=== PATIENT | male | born 1985 | race African-American/Black ===

== ENCOUNTER 2018-02-22 00:27 | Observation (INO) | payer OTHER ==
--- NOTE | 2018-02-22 01:44 | PDOC ---
History of Present Illness - General History Source: Patient, Old Records Exam Limitations: No Limitations - History of Present Illness Initial Comments: 02/22/18 04:43 Patient is a 32 year old male with a significant past medical history of HIV, H.pylori, Gastritis, who presents to the ED with complaints of difficulty breathing that began that began yesterday. Patient reports experiencing gradual difficulty breathing that began yesterday evening as well as experiencing associated episodes of vomiting. He reports experiencing associated symptoms of multiple vomiting episodes, cough, runny nose, and diarrhea, prompting him to come into the ED for further evaluation. Denies chest pain, Sob. Denies nausea, vomiting. Denies fevers, chills. Denies contact with sick individuals, out of state travelling. Denies any other symptoms. Allergies: shellfish Social history: Current smoker. No alcohol. Current Marijuana use. Surgical history: None PMD: None <Marcel Pierre - Last Filed: 02/22/18 04:43> <Radha Camarillo - Last Filed: 02/22/18 06:38> - General Chief Complaint: Shortness of Breath Stated Complaint: DIFFICULTY BREATHING Time Seen by Provider: 02/22/18 01:13 Past History <Marcel Pierre - Last Filed: 02/22/18 04:43> - Past Medical History Asthma: Yes (has never used albuterol pump) Diabetes: No - Suicide/Smoking/Psychosocial Hx Smoking History: Never smoked Have you smoked in the past 12 months: No Number of Cigarettes Smoked Daily: 20 Information on smoking cessation initiated: No 'Breaking Loose' booklet given: 05/30/16 Hx Alcohol Use: No Drug/Substance Use Hx: No Substance Use Type: Marijuana Hx Substance Use Treatment: No <Radha Camarillo - Last Filed: 02/22/18 06:38> - Past Medical History Allergies/Adverse Reactions: Allergies Allergy/AdvReac Type Severity Reaction Status Date / Time shellfish derived Allergy Mild Vomiting Verified 02/22/18 00:44 No Known Drug Allergies Allergy Verified 02/22/18 00:44 Home Medications: Ambulatory Orders Emtricitab/Rilpiviri/Tenof Ala [Odefsey Tablet] 1 tab PO DAILY #30 tablet Multivitamins [Multivit ([facility] Formulary)] 1 tab PO DAILY #30 tab 02/03/18 Review of Systems - Review of Systems Able to Perform ROS?: Yes Comments:: 02/22/18 04:43 GENERAL/CONSTITUTIONAL: No fever or chills. No weakness. HEAD, EYES, EARS, NOSE AND THROAT: No change in vision. No ear pain or discharge. No sore throat. CARDIOVASCULAR: No chest pain or shortness of breath. RESPIRATORY: No cough, wheezing, or hemoptysis. GASTROINTESTINAL: +Nausea. +vomiting. +diarrhea. No constipation. GENITOURINARY: No dysuria, frequency, or change in urination. MUSCULOSKELETAL: No joint or muscle swelling or pain. No neck or back pain. SKIN: No rash NEUROLOGIC: No headache, vertigo, loss of consciousness, or change in strength/ sensation. ENDOCRINE: No increased thirst. No abnormal weight change. HEMATOLOGIC/LYMPHATIC: No anemia, easy bleeding, or history of blood clots. ALLERGIC/IMMUNOLOGIC: No hives or skin allergy. <Marcel Pierre - Last Filed: 02/22/18 04:43> *Physical Exam - Vital Signs Last Vital Signs Temp Pulse Resp BP Pulse Ox 97.8 F 76 22 147/83 97 02/22/18 00:39 02/22/18 00:39 02/22/18 00:39 02/22/18 00:39 02/22/18 00:39 - Physical Exam Comments: 02/22/18 04:43 GENERAL: +cachectic. +Weak. +Fatigued Awake, alert, and fully oriented, in no acute distress HEAD: No signs of trauma EYES: +Sunken eyes. PERRLA, EOMI, sclera anicteric, conjunctiva clear ENT: Auricles normal inspection, hearing grossly normal, nares patent, oropharynx clear without exudates. Moist mucosa NECK: Normal ROM, supple, no lymphadenopathy, JVD, or masses LUNGS: Breath sounds equal, clear to auscultation bilaterally. No wheezes, and no crackles HEART: Regular rate and rhythm, normal S1 and S2, no murmurs, rubs or gallops ABDOMEN: Soft, nontender, normoactive bowel sounds. No guarding, no rebound. No masses EXTREMITIES: Normal range of motion, no edema. No clubbing or cyanosis. No cords, erythema, or tenderness NEUROLOGICAL: Cranial nerves II through XII grossly intact. Normal speech, normal gait SKIN: Warm, Dry, normal turgor, no rashes or lesions noted. <Marcel Pierre - Last Filed: 02/22/18 04:43> - Vital Signs Last Vital Signs Temp Pulse Resp BP Pulse Ox 97.8 F 76 22 147/83 97 02/22/18 00:39 02/22/18 00:39 02/22/18 00:39 02/22/18 00:39 02/22/18 00:39 <Radha Camarillo - Last Filed: 02/22/18 06:38> ED Treatment Course - LABORATORY CBC & Chemistry Diagram: 02/22/18 02:00 02/22/18 02:00 - ADDITIONAL ORDERS Additional order review: Laboratory Results 02/22/18 02:00 Sodium 143 Potassium 4.3 Chloride 106 Carbon Dioxide 25 Anion Gap 12 BUN 19 H Creatinine 1.4 H D Creat Clearance w eGFR 58.73 Random Glucose 122 H D Calcium 10.2 H Total Bilirubin 0.9 D AST 21 D ALT 22 D Alkaline Phosphatase 78 Total Protein 8.2 D Albumin 4.9 D 02/22/18 02:00 RBC 4.96 MCV 93.6 MCHC 34.9 RDW 12.9 MPV 7.6 D Neutrophils % 88.2 H D Lymphocytes % 7.6 L D Monocytes % 4.0 Eosinophils % 0.0 D Basophils % 0.2 - Medications Given in the ED: ED Medications Discontinued Medications Generic Name Dose Route Start Last Admin Trade Name Freq PRN Reason Stop Dose Admin Morphine Sulfate 2 mg 02/22/18 03:02 02/22/18 03:45 Morphine Injection - IVPUSH 02/22/18 03:03 2 mg ONCE ONE Administration Sodium Chloride 1,000 ml 02/22/18 02:46 02/22/18 03:45 Normal Saline - IV 02/22/18 02:47 1,000 ml ONCE ONE Administration <Marcel Pierre - Last Filed: 02/22/18 04:43> - LABORATORY CBC & Chemistry Diagram: 02/22/18 02:00 02/22/18 02:00 <Radha Camarillo - Last Filed: 02/22/18 06:38> Medical Decision Making - Medical Decision Making 02/22/18 06:17 Pt has elevated WBC count and questionable pneumonia. SOB. Mom tells me that pt has been unable to eat and that he is losing weight. Pt will be admitted to medicine observation. <Radha Camarillo - Last Filed: 02/22/18 06:38> *DC/Admit/Observation/Transfer - Attestations Scribe Attestion: 02/22/18 04:43 Documentation prepared by Marcel Pierre, acting as medical cost consultant for Radha Camarillo MD/DO. <Marcel Pierre - Last Filed: 02/22/18 04:43> - Discharge Dispostion Admit: Yes <Radha Camarillo - Last Filed: 02/22/18 06:38> Diagnosis at time of Disposition: Weight loss, abnormal, Dehydration, Acute renal insufficiency, Depression, Decreased oral intake, Dyspnea - Discharge Dispostion Condition at time of disposition: Guarded - Referrals Referrals: ON STAFF,NOT [Non Staff, Medical] - - Patient Instructions - Post Discharge Activity
[2018-02-22 02:14] LABS: BASO % 0.2 % (0-2.0); HEMATOCRIT 46.5 % (35.4-49); HEMOGLOBIN 16.2 GM/dL (11.7-16.9); LYMPH % 7.6 % (8-40); MCH 32.7 pg (25.7-33.7); MCHC 34.9 g/dl (32.0-35.9); MEAN CELL VOLUME 93.6 fl (80-96); MEAN PLT VOLUME 7.6 fl (7.5-11.1); NEUT % 88.2 % (42.8-82.8); PLATELET COUNT 213 K/MM3 (134-434); RBC 4.96 M/mm3 (4.00-5.60); RDW 12.9 % (11.9-15.9)
[2018-02-22 02:39] LABS: ALBUMIN 4.9 g/dl (3.4-5.0); ALK PHOS 78 U/L (45-117); ANION GAP 12 (8-16); BILIRUBIN,TOTAL 0.9 mg/dL (0.2-1.0); BLOOD UREA NITROGEN 19 mg/dL (7-18); CALCIUM 10.2 mg/dL (8.5-10.1); CHLORIDE 106 mmol/L (98-107); CO2 25 mmol/L (21-32); CREATININE 1.4 mg/dL (0.7-1.3); GLUCOSE,RANDOM 122 mg/dL (74-106); POTASSIUM 4.3 mmol/L (3.5-5.1); SGOT/AST 21 U/L (15-37); SGPT/ALT 22 U/L (12-78); SODIUM 143 mmol/L (136-145); TOT PROT 8.2 g/dl (6.4-8.2)
[2018-02-22] MEDS ORDERED: SODIUM CHLORIDE 0.9% 500 ML INFUS.BAG IV ONE (02:46)
[2018-02-22] MEDS ORDERED: morphine CARPU-JECT 2 MG/1 ML DISP.SYRIN IVPUSH ONE (03:02)
[2018-02-22] MEDS ORDERED: morphine SULFATE 4 MG/ML VIAL ONE (03:29)
[2018-02-22] MEDS ORDERED: morphine SULFATE 4 MG/ML VIAL IVPUSH STA (06:27)
[2018-02-22] MEDS ORDERED: PANTOPRAZOLE SODIUM 40 MG/100 ML BAG IVPB ONE (06:33)
--- NOTE | 2018-02-22 06:38 | HP ---
CHIEF COMPLAINT: abdominal pain, nausea PCP: Dr. townsend, [facility] HISTORY OF PRESENT ILLNESS: 32 yr old man with HIV controlled on meds, presented to ed with intractable abdominal pain since this morning associated with 2 episodes of yellow nonbloody vomiting and nausea. Pain is mostly in the epigastrium, but also diffuse, continuous, nonradiating. he has had this pain for past few months but recently it acutely worsened. He has lost 25pounds over the last 1 months. 2 months he was seen by Dr. Trevino for endoscopy regarding epigastric pain. He was treated for H.pylori with triple therapy which he completed. He recalls that the endoscopy results were normal. denies fevers, chest pain, trouble breathing, swelling, cough, trouble breathing , diarrhea, constipation, new foods. ER course was notable for: (1) 1 L of fluids Recent Travel: none PAST MEDICAL HISTORY: HIV, does not want to discuss his status, says he is compliant with his meds and "everything regarding that is good" PAST SURGICAL HISTORY: denies Allergies shellfish derived Allergy (Mild, Verified 02/22/18 00:44) Vomiting No Known Drug Allergies Allergy (Verified 02/22/18 00:44) HOME MEDICATIONS: Home Medications Medication Instructions Recorded Emtricitab/Rilpiviri/Tenof Ala 1 tab PO DAILY #30 tablet 02/03/18 [Odefsey Tablet] Multivitamins [Multivit ([facility] 1 tab PO DAILY #30 tab 02/03/18 Formulary)] REVIEW OF SYSTEMS CONSTITUTIONAL: Absent: fever, chills, diaphoresis, generalized weakness, malaise, loss of appetite, weight change HEENT: Absent: rhinorrhea, nasal congestion, throat pain, throat swelling, difficulty swallowing, mouth swelling CARDIOVASCULAR: Absent: chest pain, syncope, palpitations, irregular heart rate, lightheadedness , peripheral edema RESPIRATORY: Absent: cough, shortness of breath, dyspnea with exertion, orthopnea, wheezing, stridor, hemoptysis GASTROINTESTINAL: Present:abdominal pain, nausea, vomiting, Absent: abdominal distension, diarrhea, constipation, melena, hematochezia GENITOURINARY: Absent: dysuria, frequency, urgency, hesitancy, hematuria, flank pain, genital pain MUSCULOSKELETAL: Absent: myalgia, arthralgia, joint swelling, back pain, neck pain SKIN: Absent: rash, itching, pallor HEMATOLOGIC/IMMUNOLOGIC: Absent: easy bleeding, easy bruising, lymphadenopathy, frequent infections ENDOCRINE: Present: unexplained weight loss, Absent: unexplained weight gain, heat intolerance, cold intolerance PHYSICAL EXAMINATION Vital Signs - 24 hr 02/22/18 00:39 Temperature 97.8 F Pulse Rate 76 Respiratory 22 Rate Blood Pressure 147/83 O2 Sat by Pulse 97 Oximetry (%) GENERAL: Awake, alert, and fully oriented, in no acute distress. thin EYES: Pupils equal, round and reactive to light, extraocular movements intact, sclera anicteric, conjunctiva clear. No lid lag. EARS, NOSE, THROAT: oropharynx clear without exudates. no thrush, Moist mucous membranes. NECK: Normal range of motion, supple without JVD LUNGS: Breath sounds equal, clear to auscultation bilaterally. No wheezes, and no crackles. No accessory muscle use. HEART: Regular rate and rhythm, normal S1 and S2 without murmur, rub or gallop. ABDOMEN: Soft, +tender, not distended, normoactive bowel sounds, MUSCULOSKELETAL: No CVA tenderness. UPPER EXTREMITIES: 2+ radial pulses, warm, well-perfused. No cyanosis. No clubbing. No peripheral edema. NEUROLOGICAL: Normal speech. facial symmetry Laboratory Results - last 24 hr 02/22/18 02/22/18 02:00 02:00 WBC 11.0 H D RBC 4.96 Hgb 16.2 D Hct 46.5 MCV 93.6 MCH 32.7 MCHC 34.9 RDW 12.9 Plt Count 213 D MPV 7.6 D Neutrophils % 88.2 H D Lymphocytes % 7.6 L D Monocytes % 4.0 Eosinophils % 0.0 D Basophils % 0.2 Sodium 143 Potassium 4.3 Chloride 106 Carbon Dioxide 25 Anion Gap 12 BUN 19 H Creatinine 1.4 H D Creat Clearance w eGFR 58.73 Random Glucose 122 H D Calcium 10.2 H Total Bilirubin 0.9 D AST 21 D ALT 22 D Alkaline Phosphatase 78 Total Protein 8.2 D Albumin 4.9 D ASSESSMENT/PLAN: 32 yr old man with HIV presents with abdominal pain placed on observation. Abdominal pain - unclear etiology - abdominal pelvis CT without contrast due to ANTOINE - associated with weightloss, differential dx includes infectious cause, lack of po intake possibly due to gastric ulcer, gastritis, undiagnosed malignancy, or advancement of HIV into AIDS - if no cause on CT, may benefit from gi consult for re-scoping - pain control with morphine - check lipase level - urine toxicology to r/o THC use causing cyclical vomiting as per chart review , pt has a hx of abdominal pain a/w with n&v in the past and smokes marijuana on a regular basis ANTOINE - likely prerenal due to poor po intake - IVF NS @125cc/hr HIV - pt consented to repeat testing, CD4 counts, chamlydia+gono testing - ID consulted for input if this is advancement of disease vs infectious etiology - obtain viral load from PCP if possible #Leucocytosis - infectious vs reactive to viral gastritris, repeat in the AM to trend #DVT - low risk #diet - npo due to vomiting, advance as tolerated Visit type - Emergency Visit Emergency Visit: Yes ED Registration Date: 02/22/18 Care time: The patient presented to the Emergency Department on the above date and was hospitalized for further evaluation of their emergent condition. - New Patient This patient is new to me today: Yes Date on this admission: 02/22/18 - Critical Care Critical Care patient: No Hospitalist Screening - Colonoscopy Questionnaire Colonoscopy Questionnaire: Colonoscopy Questionnaire - Patient: 50 - 75 years old and never had a screening colonoscopy: Unknown History of colon or rectal polyps, or CA: Unknown History of IBD, Crohn's disease or UC: Unknown History of abdominal radiation therapy as a child: Unknown - Relative: 1 with colon or rectal CA, or polyps at age 60 or younger: Unknown Colon or rectal CA diagnosed at age 45 or younger: Unknown Multiple relatives with colon or rectal CA: Unknown - Outcome: Screening Result: Negative Screen
[2018-02-22] MEDS: SODIUM CHLORIDE 1,000 ML IV SCH ×2 (06:51→15:36)
[2018-02-22] MEDS: ONDANSETRON 4 MG/2 ML VIAL IVPB ONE ×2 (06:51→15:37)
--- NOTE | 2018-02-22 07:32 | PN ---
Teaching Attending Note Name of Resident: Carey May ATTENDING PHYSICIAN STATEMENT I saw and evaluated the patient. chart, data, imaging reviewed. I reviewed the resident's note and discussed the case with the resident. I agree with the resident's findings and plan as documented. SUBJECTIVE: 32yo HIV+ man with gastritis c/o epigastric pain for one day. He says that pain started insiduously, associated with some nausea and vomiting. + failure to thrive. Denied any fever or chills. Found to have rigors in ER that he attributed to abdominal pain. Reports cd4 count reportedly wnl 2 weeks ago. Patient uses marijuana on a regular basis. OBJECTIVE: Last Vital Signs Temp Pulse Resp BP Pulse Ox 98.6 F 84 14 128/77 99 02/22/18 06:55 02/22/18 06:55 02/22/18 06:55 02/22/18 06:55 02/22/18 06:55 general- some visible distress from abdominal pain, cachectic heent- atraumatic, normocephalic, no oral thrush neck - supple cv- s1+s2+rrr chest- cta b/l abdomen- Guarding+, bs + skin- no rashes appreciated Abnormal Lab Results 02/22/18 02/22/18 02:00 02:00 WBC 11.0 H D Neutrophils % 88.2 H D Lymphocytes % 7.6 L D BUN 19 H Creatinine 1.4 H D Random Glucose 122 H D Calcium 10.2 H CXR- reviewed by me, no infiltrates or consolidations seen, pending official read ASSESSMENT AND PLAN: 32yo man HIV+ with cachexia, failure to thrive, and abdominal pain for one day.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 History of gastritis. #Epigastric pain- pain be related to gastritis vs secondary to vomiting from marijuana. R/o pancreatitis. -PPI -avoid NSAIDs -counseling to stop marijuana -lipase level -tylenol for pain control -urine drug screen -etoh level -ct of abdomen/pelvis -zofran for nausea/vomiting #HIV -hiv serology -cd4 count, viral load -c/w odefsey 1 tab daily #ANTOINE -iv fluid hydration #DVT ppx -heparin sc
[2018-02-22 07:46] LABS: URINE APPEARANCE SLCLOUDY; URINE BILIRUBIN NEGATIVE (<2.0 mg/dL); URINE COLOR DKYELLOW; URINE GLUCOSE (UA) NEGATIVE (NEGATIVE); URINE KETONE 2+ (NEGATIVE); URINE LEUK ESTERASE NEGATIVE (NEGATIVE); URINE NITRITE NEGATIVE (NEGATIVE)
[2018-02-22 07:49] LABS: URINE PROTEIN 2+ (NEGATIVE)
[2018-02-22 09:20] LABS: URINE MUCUS FEW
[2018-02-22] MEDS: PANTOPRAZOLE SODIUM 40 MG VIAL IVPUSH SCH (09:24)
[2018-02-22] MEDS: MULTIVITAMINS (DAILY MVI) TABLET (FP) PO SCH ×2 (09:24→09:31)
--- NOTE | 2018-02-22 09:52 | PN ---
Progress Note (short form) - Note Progress Note: Subjective: denies N/V now , has no fever or chills, denies any abd pain at this time. reports vomiting multiple time ( green em,esis ) watery diarrhea with no blood . Objective: Last Vital Signs Temp Pulse Resp BP Pulse Ox 98.6 F 84 14 128/77 97 02/22/18 06:55 02/22/18 06:55 02/22/18 06:55 02/22/18 06:55 02/22/18 07:44 labs reviewed EKG reviewed. Qtc 479. Physical Exam: NAD , AAOx3 MMM, EOMI. round equal pupils CV: RRR Lungs: CTAB ext: no edema or erythema . DP 2+ b/l Abd:soft , NT, ND , NLB S . Assessment/Plan: 32 y/o man with daily Marijuana use , HP infection , and HIV who presented with abd pain , N/V and diarrhea . 1- Abd pain , N/V . could be due to cyclic vomiting syndrome. given his diarrhea , viral gastroenteritis is possible. last EGD /colo from 2015 reviewed. gastritis and removal of sigmoid polyps. HP + . treated for [address] scan with no acute pathology. - supportive measures . - lipase pending . doubt acute pancreatitis - IVF - clears - compazine for nausea. avoid zofran/reglan due to QTC of 479. - PPI - Had HP , treated with 3 courses of Abx . was told detection was positive 3 weeks ago. - check HP stool Ag - check electrolytes . follow mild leukocytosis 2- h/o HIV: denied diagnosis to me , but admitted to Night team. - cont Odefsy. will confirm with his pharmacy ( closed ) - STD screen pending 3- ANTOINE : IVF . likely prerenal azotemia - repeat labs now 4- Weight loss. last colo with ileal hyperplagia of lymphatic tissue. - check transglutaminase 5- dispo : HLOC Visit type - Emergency Visit Emergency Visit: Yes ED Registration Date: 02/22/18 Care time: The patient presented to the Emergency Department on the above date and was hospitalized for further evaluation of their emergent condition. - New Patient This patient is new to me today: Yes Date on this admission: 02/22/18 - Critical Care Critical Care patient: No
[2018-02-22] MEDS ORDERED: EMTRICITAB/RILPIVIRI/TENOF ALA (ODEFSEY) TABLET PO SCH (10:00)
[2018-02-22 10:23] LABS: ANION GAP 7 (8-16); BLOOD UREA NITROGEN 18 mg/dL (7-18); CALCIUM 8.6 mg/dL (8.5-10.1); CHLORIDE 112 mmol/L (98-107); CO2 24 mmol/L (21-32); CREATININE 1.1 mg/dL (0.7-1.3); GLUCOSE,RANDOM 102 mg/dL (74-106); LIPASE 167 U/L (73-393); PHOSPHOROUS 3.5 mg/dL (2.5-4.9); POTASSIUM 3.7 mmol/L (3.5-5.1); SODIUM 143 mmol/L (136-145)
--- NOTE | 2018-02-22 13:09 | PN ---
Progress Note (short form) - Note Progress Note: ID Consult dictated Consult at request of Dr. May N/V/D 25lb wt loss HIV + VL < 20 CD4 747 ( 02/03/18) Opportunistic infection unlikely as cause of wasting syndrome (CD4 500-1000 for past 3yr) Lymphoma or occult malignancy a possibility Continue ART ? GI evaluation
--- NOTE | 2018-02-22 14:30 | EKG ---
Test Reason : Blood Pressure : / mmHG Vent. Rate : 083 BPM Atrial Rate : 083 BPM P-R Int : 168 ms QRS Dur : 092 ms QT Int : 408 ms P-R-T Axes : 081 082 069 degrees QTc Int : 479 ms NORMAL SINUS RHYTHM WITH SINUS ARRHYTHMIA NORMAL ECG WHEN COMPARED WITH ECG OF 30-MAY-2016 12:01, NO SIGNIFICANT CHANGE WAS FOUND Confirmed by MD Tyler, Reyes ([id number]) on 02/22/2018 2:30:02 PM Referred By: Confirmed By:Reyes Scott MD
--- NOTE | 2018-02-22 14:41 | CONS ---
DATE OF CONSULTATION: 02/22/2018 The patient is a 32-year-old male, HIV positive, evaluated for management of his antiretroviral therapy and wasting syndrome. The patient is followed in the [facility]. He has been HIV positive for a number of years. He has been maintained on antiretroviral therapy. He has been adherent and has had a viral load which has been undetectable for approximately 3 years and a T-cell count consistently between 500 and 1000 for the last 3 years. He now presents with increasing cough, rhinorrhea, shortness of breath, nausea, vomiting, diarrhea, anorexia, and 25-pound weight loss. He had had a similar episode in the past. He had undergone EGD and colonoscopy, which he reports were negative. He was treated for Helicobacter pylori in the past. He denies any abdominal pain at the present time. He still has anorexia and nausea and is unable to hold down liquids. He denies diarrhea. No fever or chills. PAST MEDICAL HISTORY: As above. No known drug allergies. Medications include Odefsey, Protonix. SOCIAL HISTORY: He lives in the community. No history of tobacco use or alcohol use. Positive history of marijuana use. SYSTEMS REVIEW: Neurologic: No loss of consciousness, seizure activity, or focal weakness. Cardiac: Negative chest pain or palpitations. Respiratory: Negative cough or sputum production. Gastrointestinal: As per HPI. Genitourinary: Negative for urinary tract infection. LABORATORY DATA: White count 11.0, neutrophils 88, lymphocytes 7, monocytes 4, hematocrit 46.5, platelet count 213, BUN 18, creatinine 1.1, lipase 167. Chest x-ray negative. CAT scan of the abdomen and pelvis negative. Most recent viral markers from February 03, 2018, show a viral load of less than 20 and a T-cell count of 747. PHYSICAL EXAMINATION: General: He is awake and alert, thin male, in no acute distress. Vital Signs: Temperature 98. Blood pressure 117/81. Pulse 71, regular. Respirations 17 per minute. Eyes: Sclerae anicteric. ENT: Sclerae anicteric. Oropharynx negative. Neck: Supple. No palpable nodes. Heart Sounds: S1, S2. No murmur. Lungs: Clear. Abdomen: Soft. There is mild diffuse tenderness to palpation. No rebound or rigidity. Extremities: Negative for edema. No rashes noted. IMPRESSION: Nausea, vomiting, diarrhea, 25-pound weight loss, human immunodeficiency virus positive patient, well controlled on antiretroviral therapy. Opportunistic infection as cause of his wasting syndrome unlikely, as his T cells have been consistently between 500 and 1000 for the past 3 years. Cannot rule out a lymphoma or occult malignancy. Continue antiretroviral therapy. Would consider GI evaluation for his gastrointestinal symptoms and significant weight loss. KORI REESE M.D. [id number]
[2018-02-22 16:25] VITALS: BMI 18.0
[2018-02-22] MEDS ORDERED: ACETAMINOPHEN 325 MG TABLET (FP) PO ONE (19:52)
[2018-02-22] MEDS: PROCHLORPERAZINE INJECTION 10 MG/2 ML VIAL IVPB PRN (21:55)
[2018-02-22] MEDS ORDERED: PT OWN MED DRAWER 7, Y5N ONE (22:18)
[2018-02-23] MEDS ORDERED: ACETAMINOPHEN 1000 MG/100 ML VIAL (NON FORMULARY) IVPB ONE (03:53)
[2018-02-23] MEDS: SODIUM CHLORIDE 1,000 ML IV SCH ×3 (04:41→21:38)
[2018-02-23] MEDS: PROCHLORPERAZINE INJECTION 10 MG/2 ML VIAL IVPB PRN ×3 (06:54→23:25)
[2018-02-23] MEDS ORDERED: INSULIN (LEVEMIR) 100 UNITS/ML UNITS SQ ONE (07:17)
[2018-02-23] MEDS ORDERED: INSULIN (NOVOLOG) ASPART 100 UNITS/ML 10ML VIAL ONE (07:17)
[2018-02-23 08:01] LABS: HEMATOCRIT 38.5 % (35.4-49); HEMOGLOBIN 13.7 GM/dL (11.7-16.9); MCH 33.6 pg (25.7-33.7); MCHC 35.5 g/dl (32.0-35.9); MEAN CELL VOLUME 94.5 fl (80-96); MEAN PLT VOLUME 8.6 fl (7.5-11.1); PLATELET COUNT 179 K/MM3 (134-434); RBC 4.07 M/mm3 (4.00-5.60); RDW 13.1 % (11.9-15.9); WHITE BLOOD COUNT 6.2 K/mm3 (4.0-10.0)
[2018-02-23 08:36] LABS: CHLORIDE 113 mmol/L (98-107); POTASSIUM 3.5 mmol/L (3.5-5.1); SODIUM 144 mmol/L (136-145)
[2018-02-23 08:49] LABS: ANION GAP 8 (8-16); BLOOD UREA NITROGEN 16 mg/dL (7-18); CALCIUM 8.2 mg/dL (8.5-10.1); CO2 23 mmol/L (21-32); GLUCOSE,RANDOM 86 mg/dL (74-106); MAGNESIUM 1.9 mg/dL (1.8-2.4); PHOSPHOROUS 2.4 mg/dL (2.5-4.9)
[2018-02-23] MEDS ORDERED: NAPH,MB-DB/K PH,MBDB POWDER PACKET PO ONE (08:59)
[2018-02-23] MEDS: MULTIVITAMINS (DAILY MVI) TABLET (FP) PO SCH (10:58)
[2018-02-23] MEDS: PANTOPRAZOLE SODIUM 40 MG VIAL IVPUSH SCH (10:58)
--- NOTE | 2018-02-23 12:25 | CON.GI ---
Consult Consult Specialty:: GI Reason for Consultation:: nausea, vomiting, weight loss - History of Present Illness History of Present Illness: Chart reviewed. Events noted. As per initial intake: 32 yr old man with HIV controlled on meds, presented to ed with intractable epigastric, nonradiating, 10 out of 10, no aggravating, or alleviating factors abdominal pain since this morning associated with 2 episodes of yellow nonbloody vomiting and nausea. Pain is mostly in the epigastrium, but also diffuse, continuous. He has had this pain for past few months but recently it acutely worsened. He has lost 25pounds over the last 1 months. Was admitted 2 years ago for similar complaints and underwent EGD and colonoscopy with biopsies. H. pylori positive gastritis was found and treated. Terminal ileal biopsies revealed lymphoid aggregates. Currently, no recent history of melena, hematochezia, hematemesis, change in stool caliber, dysphagia, odynophagia, significant GERD. Patient reports he is unable to keep anything down. Reports smoking marijuana daily. Hot showers help with abdominal symptoms. a very limited CT on admission revealed no significant pathology - History Source History Provided By: Transfer Record - Past Medical History Infectious Disease: Yes: Other (HIV positive followed at the [facility]) - Alcohol/Substance Use Hx Alcohol Use: No History of Substance Use: reports: None - Smoking History Smoking history: Current every day smoker Have you smoked in the past 12 months: Yes Aproximately how many cigarettes per day: 20 - Social History Usual Living Arrangement: With Significant Other ADL: Independent Occupation: not employed History of Recent Travel: No Home Medications - Allergies Allergies/Adverse Reactions: Allergies Allergy/AdvReac Type Severity Reaction Status Date / Time shellfish derived Allergy Mild Vomiting Verified 02/22/18 00:44 No Known Drug Allergies Allergy Verified 02/22/18 00:44 - Home Medications Home Medications: Ambulatory Orders Emtricitab/Rilpiviri/Tenof Ala [Odefsey Tablet] 1 tab PO DAILY #30 tablet Multivitamins [Multivit ([facility] Formul[facility])] 1 tab PO DAILY #30 tab 02/03/18 Family Disease History - Family Disease History Family Disease History: Heart Disease: Mother (HTN, gout), Other: Father ( unknown) Review of Systems Findings/Remarks: As per H&P Physical Exam-GI Vital Signs: Vital Signs Temperature 99.2 F 02/23/18 06:00 Pulse Rate 61 02/23/18 06:00 Respiratory Rate 18 02/23/18 06:00 Blood Pressure 132/80 02/23/18 06:00 O2 Sat by Pulse Oximetry (%) 99 02/22/18 21:00 Constitutional: Yes: Anxious Eyes: Yes: Conjunctiva Clear HENT: Yes: Atraumatic Neck: Yes: Supple Cardiovascular: Yes: Regular Rate and Rhythm Respiratory: Yes: Regular Gastrointestinal Inspection: No: Distention ...Auscultate: Yes: Normoactive Bowel Sounds ...Palpate: Yes: Soft, Tenderness. No: Tenderness, Rebound Neurological: Yes: Alert, Oriented Labs: CBC, BMP 02/23/18 06:30 02/23/18 06:30 Laboratory Last Values WBC 6.2 K/mm3 (4.0-10.0) D 02/23/18 06:30 RBC 4.07 M/mm3 (4.00-5.60) 02/23/18 06:30 Hgb 13.7 GM/dL (11.7-16.9) D 02/23/18 06:30 Hct 38.5 % (35.4-49) D 02/23/18 06:30 MCV 94.5 fl (80-96) 02/23/18 06:30 MCH 33.6 pg (25.7-33.7) 02/23/18 06:30 MCHC 35.5 g/dl (32.0-35.9) 02/23/18 06:30 RDW 13.1 % (11.9-15.9) 02/23/18 06:30 Plt Count 179 K/MM3 (134-434) 02/23/18 06:30 MPV 8.6 fl (7.5-11.1) D 02/23/18 06:30 Neutrophils % 88.2 % (42.8-82.8) H D 02/22/18 02:00 Lymphocytes % 7.6 % (8-40) L D 02/22/18 02:00 Monocytes % 4.0 % (3.8-10.2) 02/22/18 02:00 Eosinophils % 0.0 % (0-4.5) D 02/22/18 02:00 Basophils % 0.2 % (0-2.0) 02/22/18 02:00 Sodium 144 mmol/L (136-145) 02/23/18 06:30 Potassium 3.5 mmol/L (3.5-5.1) 02/23/18 06:30 Chloride 113 mmol/L (98-107) H 02/23/18 06:30 Carbon Dioxide 23 mmol/L (21-32) 02/23/18 06:30 Anion Gap 8 (8-16) 02/23/18 06:30 BUN 16 mg/dL (7-18) 02/23/18 06:30 Creatinine 1.0 mg/dL (0.7-1.3) 02/23/18 06:30 Creat Clearance w eGFR 58.73 (>60) 02/22/18 02:00 Random Glucose 86 mg/dL (74-106) 02/23/18 06:30 Lactic Acid 0.7 mmol/L (0.0-2.0) 02/22/18 11:15 Calcium 8.2 mg/dL (8.5-10.1) L 02/23/18 06:30 Phosphorus 2.4 mg/dL (2.5-4.9) L D 02/23/18 06:30 Magnesium 1.9 mg/dL (1.8-2.4) 02/23/18 06:30 Total Bilirubin 0.9 mg/dL (0.2-1.0) D 02/22/18 02:00 AST 21 U/L (15-37) D 02/22/18 02:00 ALT 22 U/L (12-78) D 02/22/18 02:00 Alkaline Phosphatase 78 U/L (45-117) 02/22/18 02:00 Total Protein 8.2 g/dl (6.4-8.2) D 02/22/18 02:00 Albumin 4.9 g/dl (3.4-5.0) D 02/22/18 02:00 Lipase 167 U/L (73-393) 02/22/18 09:35 Urine Color Dkyellow 02/22/18 07:30 Urine Appearance Slcloudy 02/22/18 07:30 Urine pH 8.0 (5.0-8.0) D 02/22/18 07:30 Ur Specific [place] 1.031 (1.001-1.035) 02/22/18 07:30 Urine Protein 2+ (NEGATIVE) H 02/22/18 07:30 Urine Glucose (UA) Negative (NEGATIVE) 02/22/18 07:30 Urine Ketones 2+ (NEGATIVE) H 02/22/18 07:30 Urine Blood Negative (NEGATIVE) 02/22/18 07:30 Urine Nitrite Negative (NEGATIVE) 02/22/18 07:30 Urine Bilirubin Negative (<2.0 mg/dL) 02/22/18 07:30 Urine Urobilinogen 2.0 mg/dL (0.2-1.0) 02/22/18 07:30 Ur Leukocyte Esterase Negative (NEGATIVE) 02/22/18 07:30 Urine WBC (Auto) 3 /hpf (3-5) 02/22/18 07:30 Urine RBC (Auto) 10 /hpf (0-3) 02/22/18 07:30 Urine Mucus Few 02/22/18 07:30 HIV 1&2 Antibody Screen Negative 02/22/18 09:35 HIV P24 Antigen Preliminary positive 02/22/18 09:35 Imaging - Results Cat Scan: Report Reviewed Problem List - Problems (1) Weight loss, abnormal Code(s): R63.4 - ABNORMAL WEIGHT LOSS (2) History of Helicobacter pylori infection Code(s): Z86.19 - PERSONAL HISTORY OF OTHER INFECTIOUS AND PARASITIC DISEASES (3) Nausea & vomiting Code(s): R11.2 - NAUSEA WITH VOMITING, UNSPECIFIED Assessment/Plan Cannabis associated nausea and vomiting? Gastritis? Esophagitis? Duodenitis ? ulcer disease? Follow CD4 count. Clear liquid diet as tolerated. Protonix 40 mg every morning. Zofran when necessary. Plan upper endoscopy. Discussed with the patient in detail.
--- NOTE | 2018-02-23 13:00 | PN ---
Teaching Attending Note Name of Resident: Ines Vickers ATTENDING PHYSICIAN STATEMENT I saw and evaluated the patient. I reviewed the resident's note and discussed the case with the resident. I agree with the resident's findings and plan as documented. SUBJECTIVE: No fever or chills . had N/V earlier. none at time of evaluation . cont to have generalized abd pain. OBJECTIVE: NAD , AAOx3 MMM CV: RRR Lungs: CTAB Ext: no edema or erythema . DP 2+ b/l Abd: soft, NT, ND, NL BS. Assessment/Plan: 32 y/o man with daily Marijuana use , HP infection , and HIV who presented with abd pain , N/V and diarrhea . 1- Abd pain , N/V . Possibly CVC form marijuana use. can't r/o gastritis/PUD - cont IVF , monitor and repeat electrolytes - Cont clears - compazine for nausea. avoid zofran/reglan due to prolonged QTC - Cont PPI - follow HP stool AG (was told detection was positive 3 weeks ago) 2- h/o HIV: - cont Odefsy. - STD screen pending 3- ANTOINE : IVF . likely prerenal azotemia - repeat labs now 4- Weight loss. last colonoscopy with NL ileum but Bx showed ileal hyperplagia of lymphatic tissue. - check Tissue transglutaminase - d/w Dr. Najera, if CD4 count is low, then might need repeat endoscopy to r/o lymphoma 5- Dispo : [facility]
--- NOTE | 2018-02-23 14:18 | CON.ID ---
Consult Consult Specialty:: Infectious disease Referred by:: Dr. Hollins Reason for Consultation:: HIV positive - History of Present Illness Chief Complaint: Abdominal pain, Nausea, vomiting History of Present Illness: The patient is a 32 yo m w/ [facility] HIV who presented to the ED c/o abdominal pain as wel as nausea and vomiting for the past 1 day. Patient has been having this abdominal pain for the past month, but it became acutely worse, causing him to present for evaluation. The patient has undergone workup for this in the past w / Dr. Keller. An EGD was WNL and he was found to be H. Pylori positive. He underwent triple therapy for this. Patient endorses a 25lb weight loss over the past 1 month. Patient follows at the [facility] for his HIV care. On Odefsey therapy and states he is compliant. Last CD4+ 747, last viral load <20. Today, patient continues to complain of n/v and now endorses watery diarrhea since his abdominal pain 2 days ago as well as buring on urination since yesterday. Patient hesitant to discuss HIV status or treatment. - Past Medical History Infectious Disease: Yes: Other (HIV positive followed at the [facility]) - Alcohol/Substance Use Hx Alcohol Use: No History of Substance Use: reports: None - Smoking History Smoking history: Current every day smoker Have you smoked in the past 12 months: Yes Aproximately how many cigarettes per day: 20 - Social History Usual Living Arrangement: With Significant Other ADL: Independent Occupation: not employed History of Recent Travel: No Home Medications - Allergies Allergies/Adverse Reactions: Allergies Allergy/AdvReac Type Severity Reaction Status Date / Time shellfish derived Allergy Mild Vomiting Verified 02/22/18 00:44 No Known Drug Allergies Allergy Verified 02/22/18 00:44 - Home Medications Home Medications: Ambulatory Orders Emtricitab/Rilpiviri/Tenof Ala [Odefsey Tablet] 1 tab PO DAILY #30 tablet Multivitamins [Multivit ([facility] Form[facility])] 1 tab PO DAILY #30 tab 02/03/18 Family Disease History - Family Disease History Family Disease History: Heart Disease: Mother (HTN, gout), Other: Father ( unknown) Review of Systems - Review of Systems Constitutional: reports: Loss of Appetite. denies: Chills, Diaphoresis, Fever Cardiovascular: denies: Chest Pain, Palpitations, Shortness of Breath Respiratory: denies: Cough Gastrointestinal: reports: Diarrhea, Nausea, Vomiting. denies: Constipation, Vomiting Blood Genitourinary: reports: Dysuria Physical Exam Vital Signs: Vital Signs Temperature 99.2 F 02/23/18 06:00 Pulse Rate 61 02/23/18 06:00 Respiratory Rate 18 02/23/18 06:00 Blood Pressure 132/80 02/23/18 06:00 O2 Sat by Pulse Oximetry (%) 99 02/22/18 21:00 Constitutional: Yes: No Distress, Calm HENT: Yes: Atraumatic, Normocephalic Neck: Yes: Supple, Trachea Midline Cardiovascular: Yes: Regular Rate and Rhythm, S1, S2. No: JVD, Gallop, Murmur, Rub Respiratory: Yes: Regular, CTA Bilaterally Gastrointestinal: Yes: Normal Bowel Sounds, Soft. No: Tenderness, Tenderness, Epigastrium, Tenderness, Rebound Labs: CBC, BMP 02/23/18 06:30 02/23/18 06:30 Imaging - Results Chest X-ray: Report Reviewed, Image Reviewed Cat Scan: Report Reviewed, Image Reviewed Assessment/Plan The patient is a 32 yo m w. [facility] HIV who is being admitted for nausea, vomiting and abdominal pain. #Nausea, vomiting, diarrhea -likely 2/2 to dyspepsia -f/u GI recommendations #HIV positive status -Patient's CD4 and viral load stable over the past few months -opportunistic infection is unlikely to be the cause of the patient's symptoms -case d/w Dr. Muñoz
--- NOTE | 2018-02-23 17:46 | PN ---
Teaching Attending Note Name of Resident: Conor Pugh ATTENDING PHYSICIAN STATEMENT I saw and evaluated the patient. I reviewed the resident's note and discussed the case with the resident. I agree with the resident's findings and plan as documented. SUBJECTIVE: OBJECTIVE: ASSESSMENT AND PLAN: N/V/D Wasting syndrome HIV+ For EGD
--- NOTE | 2018-02-23 17:48 | PN ---
Physical Exam: SUBJECTIVE: Patient seen and examined at bedside. Overnight, pt c/o generalized body aches and back pain. Received Tylenol 650mg PO qd initially and was later given IV ofirmev (1g). With 2 episodes of NBNB emesis, received compazine 5mg after events. This AM, pt still c/o nausea. Otherwise denies LINK, fever, chills, chest pain, or changes in urinary or bowel function. OBJECTIVE: Vital Signs Period Temp Pulse Resp BP Sys/Lozada Pulse Ox Last 24 Hr 98.4 F-99.2 F 58-78 18-20 127-160/62-95 99 GENERAL: The patient is resting comfortably, awake, alert, and fully oriented, in no acute distress. HEAD: Normal with no signs of trauma. EYES: PERRL, extraocular movements intact, sclera anicteric, conjunctiva clear. No ptosis. ENT: Ears normal, nares patent, dry mucous membranes. NECK: Trachea midline, supple. LUNGS: Breath sounds equal, clear to auscultation bilaterally, no wheezes, no crackles, no accessory muscle use. HEART: Regular rate and rhythm, S1, S2 without murmur, rub or gallop. ABDOMEN: Soft, nontender, nondistended, normoactive bowel sounds, no guarding, no rebound, no hepatosplenomegaly, no masses. EXTREMITIES: 2+ posterior tibial pulses, warm, well-perfused, no edema. NEUROLOGICAL: Cranial nerves II through XII grossly intact. Normal speech PSYCH: flat affect SKIN: Warm, dry, normal turgor, no rashes or lesions noted Laboratory Results - last 24 hr 02/22/18 02/23/18 02/23/18 11:00 06:30 06:30 WBC 6.2 D RBC 4.07 Hgb 13.7 D Hct 38.5 D MCV 94.5 MCH 33.6 MCHC 35.5 RDW 13.1 Plt Count 179 MPV 8.6 D Sodium 144 Potassium 3.5 Chloride 113 H Carbon Dioxide 23 Anion Gap 8 BUN 16 Creatinine 1.0 Random Glucose 86 Calcium 8.2 L Phosphorus 2.4 L D Magnesium 1.9 Tiss Transglutamin IgA < 2 Active Medications Generic Name Dose Route Start Last Admin Trade Name Freq PRN Reason Stop Dose Admin Sodium Chloride 1,000 mls @ 125 mls/hr 02/22/18 06:45 02/23/18 10:57 Normal Saline - IV Not Given ASDIR SIDNEY Multivitamins/Minerals/Vitamin C 1 tab 02/22/18 10:00 02/23/18 10:58 Tab-A-Vit - PO 1 tab DAILY SIDNEY Administration Pantoprazole Sodium 40 mg 02/22/18 10:00 02/23/18 10:58 Protonix Iv IVPUSH 40 mg DAILY SIDNEY Administration Prochlorperazine Edisylate 5 mg 02/22/18 16:38 02/23/18 16:00 Compazine Injection - IVPB 5 mg Q8H PRN Administration NAUSEA ASSESSMENT/PLAN: 32 y/o M with PMH HIV (CD4 747. viral load <20 - 02/03/18), who presents to the ED c/o epigastric pain for one day. Pt admitted for intractable abdominal pain, N/V, possibly 2/2 acute viral gastroenteritis or cyclical vomiting syndrome. #Abdominal pain, N/V possibly 2/2 acute viral gastroenteritis or cyclical vomiting syndrome- resolving -while pt still c/o episodes of emesis, has improved -supportive care to continue -continue IVF NS 125 cc/hr -clear liquid diet, will advance as tolerates -F/u BMP as pt with emesis -F/u H pylori stool Ag - series d/t hx past Hpylori + #HIV -Continue odefsy 1 tab PO qd -F/u chlymidia, gonorrhea, trichimonas testing -F/u CD3,4, 8 #R/o lymphoma -if CD4 low, may need scope to r/o lymphoma #Hx 25 lb weight loss 1 month, ileal bx with lymphatic tissue -TTG (-) #F/E/N IV NS 125 cc/hr Continue to follow lytes clear liquid diet #PPX DVT: early ambulation #Dispo continued monitoring on med-surg Visit type - Emergency Visit Emergency Visit: No - New Patient This patient is new to me today: Yes Date on this admission: 02/23/18 - Critical Care Critical Care patient: No
[2018-02-23] MEDS ORDERED: PT OWN MED DRAWER 7, Y5N ONE ×3 (22:14→23:16)
[2018-02-24] MEDS ORDERED: PT OWN MED DRAWER 7, Y5N ONE ×4 (02:31→08:03)
[2018-02-24] MEDS: SODIUM CHLORIDE 1,000 ML IV SCH (06:29)
[2018-02-24 08:00] LABS: BASO % 0.7 % (0-2.0); EOS % 0.2 % (0-4.5); HEMATOCRIT 38.4 % (35.4-49); HEMOGLOBIN 13.4 GM/dL (11.7-16.9); LYMPH % 32.1 % (8-40); MCH 33.1 pg (25.7-33.7); MEAN CELL VOLUME 94.4 fl (80-96); MEAN PLT VOLUME 8.3 fl (7.5-11.1); MONO % 15.3 % (3.8-10.2); NEUT % 51.7 % (42.8-82.8); PLATELET COUNT 165 K/MM3 (134-434); RBC 4.06 M/mm3 (4.00-5.60); RDW 12.5 % (11.9-15.9); WHITE BLOOD COUNT 5.1 K/mm3 (4.0-10.0)
[2018-02-24] MEDS: PROCHLORPERAZINE INJECTION 10 MG/2 ML VIAL IVPB PRN (08:09)
[2018-02-24 08:26] LABS: CHLORIDE 111 mmol/L (98-107); POTASSIUM 3.6 mmol/L (3.5-5.1); SODIUM 143 mmol/L (136-145)
[2018-02-24 08:42] LABS: ANION GAP 8 (8-16); BLOOD UREA NITROGEN 14 mg/dL (7-18); CALCIUM 8.3 mg/dL (8.5-10.1); CO2 24 mmol/L (21-32); CREATININE 0.9 mg/dL (0.7-1.3); GLUCOSE,RANDOM 76 mg/dL (74-106)
[2018-02-24] MEDS: MULTIVITAMINS (DAILY MVI) TABLET (FP) PO SCH (09:18)
[2018-02-24] MEDS: PANTOPRAZOLE SODIUM 40 MG VIAL IVPUSH SCH (09:18)
--- NOTE | 2018-02-24 14:11 | PN ---
Progress Note, Physician History of Present Illness: Patient contines to complain of intractable nausea and vomiting today. Patient still unable to tolerate PO intake. - Current Medication List Current Medications: Active Medications Sodium Chloride (Normal Saline -) 1,000 mls @ 125 mls/hr IV ASDIR [facility] Last Admin: 02/24/18 06:29 Dose: 125 mls/hr Multivitamins/Minerals/Vitamin C (Tab-A-Vit -) 1 tab PO DAILY [facility] Last Admin: 02/24/18 09:18 Dose: 1 tab Pantoprazole Sodium (Protonix Iv) 40 mg IVPUSH DAILY [facility] Last Admin: 02/24/18 09:18 Dose: 40 mg Prochlorperazine Edisylate (Compazine Injection -) 5 mg IVPB Q8H PRN PRN Reason: NAUSEA Last Admin: 02/24/18 08:09 Dose: 5 mg - Objective Vital Signs: Vital Signs Temperature 98.6 F 02/24/18 08:15 Pulse Rate 67 02/24/18 08:15 Respiratory Rate 18 02/24/18 08:15 Blood Pressure 146/80 02/24/18 08:15 O2 Sat by Pulse Oximetry (%) 99 02/22/18 21:00 Constitutional: Yes: Well Nourished, Calm, Mild Distress HENT: Yes: Atraumatic, Normocephalic Cardiovascular: Yes: Regular Rate and Rhythm, S1, S2. No: JVD, Gallop, Murmur, Rub Respiratory: Yes: Regular, CTA Bilaterally Gastrointestinal: Yes: Normal Bowel Sounds, Soft, Tenderness (mild tenderness to palpation in the epigastrium) Labs: CBC, BMP 02/24/18 07:00 02/24/18 07:00 Assessment/Plan The patient is a 32 yo m w. [facility] HIV who is being admitted for nausea, vomiting and abdominal pain. #Nausea, vomiting, diarrhea -likely 2/2 to dyspepsia -f/u GI recommendations #HIV positive status -Patient's CD4 and viral load stable over the past few months -opportunistic infection is unlikely to be the cause of the patient's symptoms -resume patient's ART once he is able to tolerate PO.
--- NOTE | 2018-02-24 15:04 | PN ---
Progress Note, Physician History of Present Illness: the patient was seen and examined earlier this morning. Complaints of back pain. Complaints of postprandial nausea and vomiting even with liquids - Current Medication List Current Medications: Active Medications Sodium Chloride (Normal Saline -) 1,000 mls @ 125 mls/hr IV ASDIR [facility] Last Admin: 02/24/18 06:29 Dose: 125 mls/hr Multivitamins/Minerals/Vitamin C (Tab-A-Vit -) 1 tab PO DAILY [facility] Last Admin: 02/24/18 09:18 Dose: 1 tab Pantoprazole Sodium (Protonix Iv) 40 mg IVPUSH DAILY [facility] Last Admin: 02/24/18 09:18 Dose: 40 mg Prochlorperazine Edisylate (Compazine Injection -) 5 mg IVPB Q8H PRN PRN Reason: NAUSEA Last Admin: 02/24/18 08:09 Dose: 5 mg - Objective Vital Signs: Vital Signs Temperature 98.6 F 02/24/18 08:15 Pulse Rate 67 02/24/18 08:15 Respiratory Rate 18 02/24/18 08:15 Blood Pressure 146/80 02/24/18 08:15 O2 Sat by Pulse Oximetry (%) 99 02/22/18 21:00 Constitutional: Yes: Anxious, Mild Distress Eyes: Yes: Conjunctiva Clear HENT: Yes: Atraumatic Neck: Yes: Supple Cardiovascular: Yes: Regular Rate and Rhythm Respiratory: Yes: Regular Gastrointestinal: Yes: Normal Bowel Sounds, Soft Edema: No Neurological: Yes: Alert, Oriented Labs: CBC, BMP 02/24/18 07:00 02/24/18 07:00 Laboratory Last Values WBC 5.1 K/mm3 (4.0-10.0) 02/24/18 07:00 RBC 4.06 M/mm3 (4.00-5.60) 02/24/18 07:00 Hgb 13.4 GM/dL (11.7-16.9) 02/24/18 07:00 Hct 38.4 % (35.4-49) 02/24/18 07:00 MCV 94.4 fl (80-96) 02/24/18 07:00 MCH 33.1 pg (25.7-33.7) 02/24/18 07:00 MCHC 35.0 g/dl (32.0-35.9) 02/24/18 07:00 RDW 12.5 % (11.9-15.9) 02/24/18 07:00 Plt Count 165 K/MM3 (134-434) 02/24/18 07:00 MPV 8.3 fl (7.5-11.1) 02/24/18 07:00 Absolute Lymphs (auto) 1.3 x10E3/uL (0.7-3.1) 02/22/18 09:35 Neutrophils % 51.7 % (42.8-82.8) D 02/24/18 07:00 Lymphocytes % 32.1 % (8-40) D 02/24/18 07:00 Monocytes % 15.3 % (3.8-10.2) H D 02/24/18 07:00 Eosinophils % 0.2 % (0-4.5) D 02/24/18 07:00 Basophils % 0.7 % (0-2.0) D 02/24/18 07:00 Lymphocytes 14 % (Not Estab.) 02/22/18 09:35 Nucleated RBCs TNP 02/22/18 09:35 Sodium 143 mmol/L (136-145) 02/24/18 07:00 Potassium 3.6 mmol/L (3.5-5.1) 02/24/18 07:00 Chloride 111 mmol/L (98-107) H 02/24/18 07:00 Carbon Dioxide 24 mmol/L (21-32) 02/24/18 07:00 Anion Gap 8 (8-16) 02/24/18 07:00 BUN 14 mg/dL (7-18) 02/24/18 07:00 Creatinine 0.9 mg/dL (0.7-1.3) 02/24/18 07:00 Creat Clearance w eGFR 58.73 (>60) 02/22/18 02:00 Random Glucose 76 mg/dL (74-106) 02/24/18 07:00 Lactic Acid 0.7 mmol/L (0.0-2.0) 02/22/18 11:15 Calcium 8.3 mg/dL (8.5-10.1) L 02/24/18 07:00 Phosphorus 2.4 mg/dL (2.5-4.9) L D 02/23/18 06:30 Magnesium 1.9 mg/dL (1.8-2.4) 02/23/18 06:30 Total Bilirubin 0.9 mg/dL (0.2-1.0) D 02/22/18 02:00 AST 21 U/L (15-37) D 02/22/18 02:00 ALT 22 U/L (12-78) D 02/22/18 02:00 Alkaline Phosphatase 78 U/L (45-117) 02/22/18 02:00 Total Protein 8.2 g/dl (6.4-8.2) D 02/22/18 02:00 Albumin 4.9 g/dl (3.4-5.0) D 02/22/18 02:00 Lipase 167 U/L (73-393) 02/22/18 09:35 Urine Color Dkyellow 02/22/18 07:30 Urine Appearance Slcloudy 02/22/18 07:30 Urine pH 8.0 (5.0-8.0) D 02/22/18 07:30 Ur Specific [place] 1.031 (1.001-1.035) 02/22/18 07:30 Urine Protein 2+ (NEGATIVE) H 02/22/18 07:30 Urine Glucose (UA) Negative (NEGATIVE) 02/22/18 07:30 Urine Ketones 2+ (NEGATIVE) H 02/22/18 07:30 Urine Blood Negative (NEGATIVE) 02/22/18 07:30 Urine Nitrite Negative (NEGATIVE) 02/22/18 07:30 Urine Bilirubin Negative (<2.0 mg/dL) 02/22/18 07:30 Urine Urobilinogen 2.0 mg/dL (0.2-1.0) 02/22/18 07:30 Ur Leukocyte Esterase Negative (NEGATIVE) 02/22/18 07:30 Urine WBC (Auto) 3 /hpf (3-5) 02/22/18 07:30 Urine RBC (Auto) 10 /hpf (0-3) 02/22/18 07:30 Urine Mucus Few 02/22/18 07:30 Tiss Transglutamin IgA < 2 U/mL (0-3) 02/22/18 11:00 Absolute CD3 Count 813 /uL (622-2402) 02/22/18 09:35 % CD3+ Lymphocytes 62.5 % (57.5-86.2) 02/22/18 09:35 Absolute CD4 [place] 439 /uL (359-1519) 02/22/18 09:35 % CD4+ Lymphocyte 33.8 % (30.8-58.5) 02/22/18 09:35 CD4/CD8 Ratio 1.10 (0.92-3.72) 02/22/18 09:35 % CD8+ Lymphocyte 30.6 % (12.0-35.5) 02/22/18 09:35 Absolute CD8 Count 398 /uL (109-897) 02/22/18 09:35 HIV 1&2 Antibody Screen Negative 02/22/18 09:35 HIV P24 Antigen Preliminary positive 02/22/18 09:35 Problem List - Problems (1) Weight loss, abnormal Code(s): R63.4 - ABNORMAL WEIGHT LOSS (2) History of Helicobacter pylori infection Code(s): Z86.19 - PERSONAL HISTORY OF OTHER INFECTIOUS AND PARASITIC DISEASES (3) Nausea & vomiting Code(s): R11.2 - NAUSEA WITH VOMITING, UNSPECIFIED Assessment/Plan Cannabis associated nausea and vomiting? Gastritis? Esophagitis? Duodenitis ? ulcer disease? CD4 count noted. Clear liquid diet as tolerated. Protonix 40 mg every morning. Zofran when necessary. Plan upper endoscopy. Discussed with the patient in detail.
[2018-02-24 15:43] VITALS: BP 141/90; PULSE 59; TEMP 98.8
--- NOTE | 2018-02-24 16:25 | PN ---
Teaching Attending Note Name of Resident: Ines Vickers ATTENDING PHYSICIAN STATEMENT I saw and evaluated the patient. I reviewed the resident's note and discussed the case with the resident. I agree with the resident's findings and plan as documented. SUBJECTIVE: cont with N/V. no abd pain at time of evaluation around 12 noon OBJECTIVE: NAD , AAOx3 . flat affect MMM CV: RRR Lungs: CTAB Ext: no edema or erythema. DP 2+ b/l Abd: soft, NT, ND, NL BS. Assessment/Plan: 32 y/o man with daily Marijuana use , HP infection , and HIV who presented with abd pain , N/V and diarrhea . 1- Abd pain , N/V . Possibly CVC form marijuana use. 2- ANTOINE, resolved 3- HIV: CD4 434 4- weight loss. 5- Prolonged Qtc plan : - cont IVF - cont to monitor eletrolytes - compazine - PPI - follow Stoop HP Ag - follow TTG pt decided to leave AMA . risks of leaving were d/w him by Dr. Vickers. c
--- NOTE | 2018-02-24 19:52 | DS ---
Physical Exam: SUBJECTIVE: Patient seen and examined at bedside today. Pt stated that his abdominal pain had mildly improved, however still c/o nausea and episodes of NBNB emesis. In afternoon, pt stated that he was "sick of staying in the hospital bed," requesting to leave immediately. Risks of leaving were discussed in detail, pt still adamant. Refused to sign AMA form. OBJECTIVE: Vital Signs Period Temp Pulse Resp BP Sys/Lozada Pulse Ox Last 24 Hr 98.6 F-98.9 F 59-76 18-20 129-146/61-90 PHYSICAL EXAM GENERAL: The patient is upset, sitting up. awake, alert, and fully oriented, in no acute distress. HEAD: Normal with no signs of trauma. EYES: PERRL, extraocular movements intact, sclera anicteric, conjunctiva clear. ENT: Ears normal, nares patent, oropharynx clear without exudates, dry mucous membranes. NECK: Trachea midline, supple. LUNGS: Breath sounds equal, clear to auscultation bilaterally, no wheezes, no crackles, no accessory muscle use. HEART: Regular rate and rhythm, S1, S2 without murmur, rub or gallop. ABDOMEN: Soft, mildly TTP, nondistended, normoactive bowel sounds, no guarding, no rebound, no hepatosplenomegaly, no masses. EXTREMITIES: 2+ posterior tibial pulses, warm, well-perfused, no edema. NEUROLOGICAL: Cranial nerves II through XII grossly intact. Normal speech PSYCH: flat affect SKIN: Warm, dry, normal turgor, no rashes or lesions noted. LABS Laboratory Results - last 24 hr 02/22/18 02/24/18 02/24/18 09:35 07:00 07:00 WBC 9.3 5.1 RBC 4.06 Hgb 13.4 Hct 38.4 MCV 94.4 MCH 33.1 MCHC 35.0 RDW 12.5 Plt Count 165 MPV 8.3 Absolute Lymphs (auto) 1.3 Neutrophils % 51.7 D Lymphocytes % 32.1 D Monocytes % 15.3 H D Eosinophils % 0.2 D Basophils % 0.7 D Lymphocytes 14 Nucleated RBCs TNP Sodium 143 Potassium 3.6 Chloride 111 H Carbon Dioxide 24 Anion Gap 8 BUN 14 Creatinine 0.9 Random Glucose 76 Calcium 8.3 L Absolute CD3 Count 813 % CD3+ Lymphocytes 62.5 Absolute CD4 [place] 439 % CD4+ Lymphocyte 33.8 CD4/CD8 Ratio 1.10 % CD8+ Lymphocyte 30.6 Absolute CD8 Count 398 Imaging 02/22/18: CXR: no acute pathology 02/22/18: Abdomen/pelvis CT: limited study, with no signs of acute pathology HOSPITAL COURSE: Date of Admission:02/22/18 Date of Discharge: 02/24/18 Admit diagnosis: cyclical vomiting syndrome 2/2 chronic marijuana use 32 y/o M with PMH HIV+ (CD4 747, viral load < 20 - 02/03/18) who presented to the ED complaining of epigastric pain for one day. Pt developed intractable abdominal pain and was admitted for cyclical vomiting syndrome likely 2/2 chronic marijuana use. While pt was in the hospital, he was treated supportively with IVF, and compazine for his nausea. Pt also underwent follow up testing for HIV, comorbid STD testing, and was seen by ID team. Pt's CD4 count returned in ~400s. Today, pt became increasingly frustrated, stating that "sick of staying in the hospital bed," requesting to leave immediately. Risks of leaving were discussed in detail, pt still adamant. Refused to sign AMA form , however left building. Minutes to complete discharge: 32 Discharge Summary Reason For Visit: ABDORMAL WEIGHT LOSS, DEHYDRATION Condition: Guarded - Instructions Referrals: ON STAFF,NOT [Non Staff, Medical] - Disposition: AGAINST MEDICAL ADVICE - Home Medications Comprehensive Discharge Medication List: Ambulatory Orders Emtricitab/Rilpiviri/Tenof Ala [Odefsey Tablet] 1 tab PO DAILY #30 tablet Multivitamins [Multivit ([facility] Formulary)] 1 tab PO DAILY #30 tab 02/03/18 This patient is new to me today: No Emergency Visit: No Critical Care patient: No - Discharge Referral Referred to [facility] No
== END 2018-02-24 14:30 | disposition left against medical advice (07) ==
LOC: SUPCPDRO 00:27 → JER 00:27 → JERBED 06:04 → UNDOADMOB 06:13 → JERBED 06:13 → J8W 10:33
PROVIDERS: ADMIT Internal Medicine; ATTEND Internal Medicine
PROC: 3E033NZ Introduction of Analgesics, Hypnotics, Sedatives into Peripheral Vein, Percutaneous Approach (ICD-10-PCS; principal; 2018-02-22)
PROC: 3E033GC Introduction of Other Therapeutic Substance into Peripheral Vein, Percutaneous Approach (ICD-10-PCS; 2018-02-22)
PROC: 3E0337Z Introduction of Electrolytic and Water Balance Substance into Peripheral Vein, Percutaneous Approach (ICD-10-PCS; 2018-02-22)
DX: R63.4 Abnormal weight loss (principal); E86.0 Dehydration; Z68.1 Body mass index [BMI] 19.9 or less, adult; N28.9 Disorder of kidney and ureter, unspecified; F32.9 Major depressive disorder, single episode, unspecified; R06.00 Dyspnea, unspecified; N17.9 Acute kidney failure, unspecified; Z21 Asymptomatic human immunodeficiency virus [HIV] infection status; Z91.013 Allergy to seafood; R10.9 Unspecified abdominal pain; R11.2 Nausea with vomiting, unspecified; Z86.19 Personal history of other infectious and parasitic diseases; R19.7 Diarrhea, unspecified
CPT/HCPCS: 36415; 71046-TC-FY; 74176-TC; 80048; 80053; 81003; 81015; 83516; 83605; 83690; 83735; 84100; 85025; 85027; 86359; 86360; 87389; 87491; 87591; 87661; 93005; 93010; 96374; 96375; 96376; 99284-25; G0378; J0131; J7030

== ENCOUNTER → 2019-01-25 | Emergency (ER) | payer OTHER ==
[2019-01-25 23:27] VITALS: BP 125/82; PULSE 117; TEMP 98.5; BMI 18.5
== END | disposition left against medical advice (07) ==
LOC: JER 23:21
DX: Z53.21 Procedure and treatment not carried out due to patient leaving prior to being seen by health care provider (principal)
CPT/HCPCS: 99281-25

== ENCOUNTER → 2019-06-15 | Outpatient (CLI) | payer OTHER | LOC: YHH 11:45 ==